=== PATIENT | female | born 1975 | race Caucasian/White ===

== ENCOUNTER 2018-04-16 02:36 | Emergency (ER) | payer OTHER ==
[~2018-04-16] VITALS: Ht 177.8 cm; Wt 64.5 kg
[2018-04-16] MEDS ORDERED: REGLAN10 MG PO (05:24)
[2018-04-16] MEDS ORDERED: NAPROSYN500 MG PO (05:24)
[2018-04-16] MEDS ORDERED: MEDROL DOSEPAK4 MG PO (05:24)
[2018-04-16 05:37] VITALS: BP 132/77
== END 2018-04-16 05:38 | disposition home or self-care (01) ==
LOC: EME 02:36
DX: M54.2 Cervicalgia (principal); G43.909 Migraine, unspecified, not intractable, without status migrainosus; M79.7 Fibromyalgia; J45.909 Unspecified asthma, uncomplicated; F17.200 Nicotine dependence, unspecified, uncomplicated; K58.9 Irritable bowel syndrome, unspecified
CPT/HCPCS: 72125; 99281; 99284; J1100; J1885; J2270; J2765